=== PATIENT | female | born 1990 | race Caucasian/White ===

== ENCOUNTER 2022-12-26 09:46 | Outpatient (CLI) | payer BC | END 2022-12-26 09:47 | disposition home or self-care (01) | LOC: MRI 09:46 → BICMRI 09:47 | PROVIDERS: ATTEND Family Medicine | DX: S89.91XA Unspecified injury of right lower leg, initial encounter (principal); M23.91 Unspecified internal derangement of right knee; M71.21 Synovial cyst of popliteal space [Baker], right knee ==